=== PATIENT | female | born 1975 | race African-American/Black ===

== ENCOUNTER 2018-02-08 09:58 | Emergency (ER) | payer BC ==
[~2018-02-08] VITALS: Ht 170.2 cm; Wt 64.0 kg
[2018-02-08] MEDS ORDERED: HYDROCODONE/ACETAMINOPHEN 5/325MG TABLET PO ONE (14:00)
[2018-02-08 14:21] VITALS: BP 118/76
== END 2018-02-08 16:49 | disposition home or self-care (01) ==
LOC: ER 11:26
DX: M25.561 Pain in right knee (principal); W18.39XA Other fall on same level, initial encounter; Y93.69 Activity, other involving other sports and athletics played as a team or group; Y92.9 Unspecified place or not applicable
CPT/HCPCS: 73562; 99283; L1830